=== PATIENT | female | born 1965 | race Hispanic/Latino ===

== ENCOUNTER 2018-05-01 19:44 | Emergency (ER) | payer OTHER ==
[2018-05-01] MEDS ORDERED: HYDROCODONE/APAP 5/325 MG TAB ONE (20:36)
--- NOTE | 2018-05-01 20:38 | ER ---
Nurse's Notes [facility] Name: Liz Del Rio Age: 52 yrs Sex: Female : 1965 Arrival Date: 05/01/2018 Time: 19:48 Bed 23 Private MD: Diagnosis: Fracture of patella;Fall on same level, unspecified Presentation: 05/01 19:52 Presenting complaint: Patient states: slipped and fell on right knee yesterday ak1 afternoon in a restaurant. Transition of care: patient was not received from another setting of care. Onset of symptoms was May 01, 2018. Risk Assessment: Do you want to hurt yourself or someone else? Patient reports no desire to harm self or others. Initial Sepsis Screen: Does the patient meet any 2 criteria? No. Patient's initial sepsis screen is negative. Does the patient have a suspected source of infection? No. Patient's initial sepsis screen is negative. Care prior to arrival: None. 19:52 Method Of Arrival: Ambulatory ak1 19:52 Acuity: SARMAD 4 ak1 Triage Assessment: 20:11 General: Appears in no apparent distress. comfortable, well groomed, well developed, kr2 well nourished, Behavior is calm, cooperative, appropriate for age. Pain: Complains of pain in right knee Pain currently is 9 out of 10 on a pain scale. Quality of pain is described as sharp, shooting, tender, Pain began yesterday Is continuous, Alleviated by rest, Aggravated by increased activity, repositioning, weight bearing. 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 - Social history:: Smoking status: Patient/guardian denies using tobacco. - Ebola Screening: : No symptoms or risks identified at this time. Screenin:10 Abuse screen: Denies threats or abuse. Denies injuries from another. Nutritional kr2 screening: No deficits noted. Tuberculosis screening: No symptoms or risk factors identified. Fall Risk Fall in past 12 months (25 points). Assessment: 20:00 General: Appears in no apparent distress. comfortable, well groomed, well developed, kr2 well nourished, Behavior is calm, cooperative, appropriate for age. Pain: Complains of pain in right knee Pain does not radiate. Pain currently is 9 out of 10 on a pain scale. Quality of pain is described as sharp, shooting, tender, Is continuous, Alleviated by rest, Aggravated by increased activity, repositioning, weight bearing. Neuro: Level of Consciousness is awake, alert, obeys commands, Oriented to person, place, time, situation, Appropriate for age. Cardiovascular: Capillary refill < 3 seconds in bilateral fingers Patient's skin is warm and dry. Respiratory: Airway is patent Respiratory effort is even, unlabored, Respiratory pattern is regular, symmetrical. GI: Abdomen is flat, non-distended. : Denies burning with urination. EENT: Oral mucosa is moist. Derm: Skin is intact, is healthy with good turgor, Skin is pink, warm \T\ dry. Musculoskeletal: Circulation, motion, and sensation intact. Range of motion: limited in right knee Swelling present in right knee. Injury Description: fall resulting in knee pain. 21:00 Reassessment: Patient appears in no apparent distress at this time. Patient and/or kr2 family updated on plan of care and expected duration. Pain level reassessed. Patient is alert, oriented x 3, equal unlabored respirations, skin warm/dry/pink. knee immobilizer placed, patient verbalizes comfort and understanding of immobilizer use and care. Given walker and patient demonstrated safe, effective use of walker and immobilizer Patient states symptoms have improved. Vital Signs: 19:53 BP 155 / 88; Pulse 92; Resp 18; Temp 98.1; Pulse Ox 99% on R/A; Weight 72.57 kg (R); ak1 Height 5 ft. 2 in. (157.48 cm) (R); Pain 9/10; 21:00 BP 146 / 78; Pulse 90; Resp 17; Pulse Ox 99% on R/A; kr2 19:53 Body Mass Index 29.26 (72.57 kg, 157.48 cm) ak1 ED Course: 19:48 Patient arrived in ED. es 19:52 Arm band placed on Patient placed in an exam room, on a stretcher, Patient notified of ak1 wait time. 19:53 Triage completed. ak1 19:55 Nicci Castillo FNP-C is PHCP. snw 19:55 Laci Pinedo MD is Attending Physician. snw 20:10 Zully Wise, JACKY is Primary Nurse. kr2 20:12 Patient has correct armband on for positive identification. Bed in low position. Call kr2 light in reach. Side rails up X 1. Pulse ox on. NIBP on. Door closed. Warm blanket given. Head of bed elevated. 20:25 Knee Right 3 View XRAY In Process Unspecified. EDMS 20:37 Jah Osman MD is Referral Physician. snw 21:00 No provider procedures requiring assistance completed. Patient did not have IV access kr2 during this emergency room visit. Administered Medications: 20:40 Drug: [place] 5 mg-325 mg 1 tabs Route: PO; kr2 21:00 Follow up: Response: No adverse reaction; Pain is decreased kr2 Outcome: 20:37 Discharge ordered by MD. snw 21:05 Discharged to home via wheelchair, with family. kr2 21:05 Condition: good 21:05 Discharge instructions given to patient, Instructed on discharge instructions, follow up and referral plans. medication usage, walker and knee immobilizer use and care Demonstrated understanding of instructions, follow-up care, medications, walker and knee immobilizer care and use 21:09 Patient left the ED. kr2 Signatures: Dispatcher [employer] EDNH Nicci Castillo FNP-C CHILD LIFE SPECIALIST-Yue Guzman Amber RN RN ak1 Zully Wise, RN RN kr2 Corrections: (The following items were deleted from the chart) 21:49 21:00 Reassessment: Patient appears in no apparent distress at this time. Patient kr2 and/or family updated on plan of care and expected duration. Pain level reassessed. Patient is alert, oriented x 3, equal unlabored respirations, skin warm/dry/pink. knee immobilizer placed, patient verbalizes comfort and understanding of immobilizer use and care Patient states symptoms have improved. kr2
--- NOTE | 2018-05-01 20:38 | EDPHYS ---
Physician Documentation [facility] Name: Liz Del Rio Age: 52 yrs Sex: Female : 1965 Arrival Date: 05/01/2018 Time: 19:48 Bed 23 Private MD: ED Physician Laci Pinedo HPI: 05/01 20:25 This 52 yrs old Female presents to ER via Ambulatory with complaints of Fall snw Injury, to rt knee. 20:25 Details of fall: The patient fell from an upright position, while walking. Onset: The snw symptoms/episode began/occurred suddenly, yesterday. Associated injuries: The patient sustained right knee, contusion. 20:26 Severity of symptoms: At their worst the symptoms were moderate. It is unknown whether snw or not the patient has had similar symptoms in the past. It is unknown whether or not the patient has recently seen a physician. pt states sometimes she doesn't move her leg well since her stroke and she was at [employer] yesterday and tried to turn around and tripped on her leg. Pt states she hit her knee and it has been painful since. 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 - Social history:: Smoking status: Patient/guardian denies using tobacco. - Ebola Screening: : No symptoms or risks identified at this time. ROS: 20:28 Constitutional: Negative for fever, chills, and weight loss, Eyes: Negative for injury, snw pain, redness, and discharge, ENT: Negative for injury, pain, and discharge, Neck: Negative for injury, pain, and swelling, Cardiovascular: Negative for chest pain, palpitations, and edema, Respiratory: Negative for shortness of breath, cough, wheezing, and pleuritic chest pain, Abdomen/GI: Negative for abdominal pain, nausea, vomiting, diarrhea, and constipation, Back: Negative for injury and pain, : Negative for injury, bleeding, discharge, and swelling, Skin: Negative for injury, rash, and discoloration, Neuro: Negative for headache, weakness, numbness, tingling, and seizure. 20:28 MS/extremity: Positive for injury or acute deformity, contusion, pain, of the right knee. Exam: 20:29 Constitutional: This is a well developed, well nourished patient who is awake, alert, snw and in no acute distress. Head/Face: Normocephalic, atraumatic. Eyes: Pupils equal round and reactive to light, extra-ocular motions intact. Lids and lashes normal. Conjunctiva and sclera are non-icteric and not injected. Cornea within normal limits. Periorbital areas with no swelling, redness, or edema. ENT: Nares patent. No nasal discharge, no septal abnormalities noted. Tympanic membranes are normal and external auditory canals are clear. Oropharynx with no redness, swelling, or masses, exudates, or evidence of obstruction, uvula midline. Mucous membranes moist. Neck: Trachea midline, no thyromegaly or masses palpated, and no cervical lymphadenopathy. Supple, full range of motion without nuchal rigidity, or vertebral point tenderness. No Meningismus. Chest/axilla: Normal chest wall appearance and motion. Nontender with no deformity. No lesions are appreciated. Cardiovascular: Regular rate and rhythm with a normal S1 and S2. No gallops, murmurs, or rubs. Normal PMI, no JVD. No pulse deficits. Respiratory: Lungs have equal breath sounds bilaterally, clear to auscultation and percussion. No rales, rhonchi or wheezes noted. No increased work of breathing, no retractions or nasal flaring. Abdomen/GI: Soft, non-tender, with normal bowel sounds. No distension or tympany. No guarding or rebound. No evidence of tenderness throughout. Back: No spinal tenderness. No costovertebral tenderness. Full range of motion. Skin: Warm, dry with normal turgor. Normal color with no rashes, no lesions, and no evidence of cellulitis. Neuro: Awake and alert, GCS 15, oriented to person, place, time, and situation. Cranial nerves II-XII grossly intact. Motor strength greater in left than right Sensory grossly intact. Cerebellar exam normal. Normal gait. Tenderness over right patella Psych: Awake, alert, with orientation to person, place and time. Behavior, mood, and affect are within normal limits. Vital Signs: 19:53 BP 155 / 88; Pulse 92; Resp 18; Temp 98.1; Pulse Ox 99% on R/A; Weight 72.57 kg (R); ak1 Height 5 ft. 2 in. (157.48 cm) (R); Pain 9/10; 21:00 BP 146 / 78; Pulse 90; Resp 17; Pulse Ox 99% on R/A; kr2 19:53 Body Mass Index 29.26 (72.57 kg, 157.48 cm) ak1 MDM: 20:07 Patient medically screened. snw 20:38 Data reviewed: vital signs, nurses notes. Data interpreted: Pulse oximetry: on room air snw is 99 %. Interpretation: normal. Counseling: I had a detailed discussion with the patient and/or guardian regarding: the historical points, exam findings, and any diagnostic results supporting the discharge/admit diagnosis, the presence of at least one elevated blood pressure reading (>120/80) during this emergency department visit, radiology results, the need for outpatient follow up, to return to the emergency department if symptoms worsen or persist or if there are any questions or concerns that arise at home. Special discussion: I have referred the patient to see his PCP for further evaluation of high blood pressure. Based on the history and exam findings, there is no indication for further emergent testing or inpatient evaluation. I discussed with the patient/guardian the need to see the orthopedic surgeon for further evaluation of the symptoms. I discussed with the patient/guardian the need to see the primary care provider for further evaluation of the symptoms. 05/01 20:07 Order name: Knee Right 3 View XRAY; Complete Time: 20:58 snw 05/01 20:29 Order name: Knee Immobilizer; Complete Time: 21:46 snw 05/01 20:36 Order name: Misc. Order: Walker; Complete Time: 21:46 snw Administered Medications: 20:40 Drug: [place] 5 mg-325 mg 1 tabs Route: PO; kr2 21:00 Follow up: Response: No adverse reaction; Pain is decreased kr2 Disposition: 22:49 Co-signature as Attending Physician, Laci Pinedo MD. rn Disposition: 05/01/18 20:37 Discharged to Home. Impression: Fracture of patella, Fall on same level, unspecified. - Condition is Stable. - Discharge Instructions: Elastic Bandage and RICE, Cast or Splint Care, Fall Prevention and Home Safety, Knee Bracing, Patellar Fracture, Adult, Walker Use. - Prescriptions for Tylenol- Codeine #3 300-30 mg Oral Tablet - take 2 tablets by ORAL route every 6 hours As needed; 20 tablet. - Medication Reconciliation Form, Thank You Letter, Antibiotic Education, Prescription Opioid Use form. - Follow up: Private Physician; When: 1 - 2 days; Reason: Recheck today's complaints, Continuance of care, Re-evaluation by your physician. Follow up: Jah Osman MD; When: 5 - 6 days; Reason: Recheck today's complaints, Continuance of care. Signatures: Dispatcher [employer] EDMS Nicci Castillo, FISH PROCESSOR-C FISH PROCESSOR-Csnw Laci Pinedo MD MD rn Krenek, Amber, RN RN ak1 Zully Wise RN RN kr2 Corrections: (The following items were deleted from the chart) 20:38 20:37 05/01/2018 20:37 Discharged to Home. Impression: Fracture of patella. Condition snw is Stable. Forms are Medication Reconciliation Form, Thank You Letter, Antibiotic Education, Prescription Opioid Use. Follow up: Private Physician; When: 1 - 2 days; Reason: Recheck today's complaints, Continuance of care, Re-evaluation by your physician. Follow up: Jah Osman; When: 5 - 6 days; Reason: Recheck today's complaints, Continuance of care. snw 21:09 20:38 05/01/2018 20:37 Discharged to Home. Impression: Fracture of patella; Fall on kr2 same level, unspecified. Condition is Stable. Forms are Medication Reconciliation Form, Thank You Letter, Antibiotic Education, Prescription Opioid Use. Follow up: Private Physician; When: 1 - 2 days; Reason: Recheck today's complaints, Continuance of care, Re-evaluation by your physician. Follow up: Jah Osman; When: 5 - 6 days; Reason: Recheck today's complaints, Continuance of care. snw
--- NOTE | 2018-05-01 20:49 | RAD REPORT ---
EXAM DESCRIPTION: RAD - Knee Right 3 View - 05/01/2018 8:26 pm CLINICAL HISTORY: Slip and fall, knee pain COMPARISON: None. FINDINGS: Transverse fracture is seen in the lower third of the patella. This extends from anterior to posterior margin. No distraction. No fracture of the distal femur or proximal tibia. There is slig ht irregularity in the proximal fibula. No distraction or angulation. Correlation is needed with any symptoms near the head of the fibula. No measurable joint effusion related to the patella fracture. No joint space narrowing. No foreign aneta dy or other soft tissue abnormality. IMPRESSION: Transverse patella fracture with no significant distraction and no measurable joint effu joi. Femur and tibia appear intact. Fibular head fracture is not excluded. If present, there is no angulat ion or distraction.
== END 2018-05-01 21:09 | disposition home or self-care (01) ==
LOC: ER 19:44
DX: S82.001A Unspecified fracture of right patella, initial encounter for closed fracture (principal); I10 Essential (primary) hypertension; E78.5 Hyperlipidemia, unspecified; W18.39XA Other fall on same level, initial encounter; Y93.01 Activity, walking, marching and hiking; Y92.89 Other specified places as the place of occurrence of the external cause; Y99.8 Other external cause status
CPT/HCPCS: 99284